=== PATIENT | male | born 1940 | race Caucasian/White ===

== ENCOUNTER 2017-06-16 13:17 | Inpatient (IN) ==
[2017-06-16] MEDS ORDERED: 0.9 % Sodium Chloride 1,000 ML IVC ONE (13:33)
--- NOTE | 2017-06-16 13:34 | Emergency Department Note ---
Disposition Clinical Impression: Elevated creatine kinase, Right inguinal hernia, Seizure-like activity Hypotension Qualifiers: Hypotension type: unspecified hypotension type Qualified Code(s): I95.9 - Hypotension, unspecified Disposition: Admitted As Inpatient Condition: Good [facility] - Forms: ED Satisfaction Letter, Work/School Release Time of Disposition: 16:35 General Adult HPI - General Chief complaint: ED General Medical Stated complaint: PAIN Time Seen by Provider: 06/16/17 13:27 Source: patient, EMS Mode of arrival: EMS Limitations: no limitations Nursing Notes Reviewed: Yes Vital Signs Reviewed: Yes - History of Present Illness HPI Narrative: patient is a 76-year-old male with past medical history of a recent Escherichia coli pyelonephritis, CKD, dementia, BPH, high cholesterol. He presents today as a transfer from the [facility]. states that the patient was recently discharged about a week ago from the [facility] due to pyelonephritis. During that time, he received IV antibiotics. He was eventually sent home with Keflex to take 4 times daily. He finished this prescription. When sent home, the patient was also sent home with a Saab catheter in place due to BPH and difficulty with urination. This has since been removed. The patient has been urinating without complication. He presented today to the [facility] due to right groin pain. He noticed some swelling and pain in the right groin this morning. While at the [facility], patient was found to have a low blood pressure, systolic blood pressure in the 80s. During his stay, patient also reportedly had a seizure. states that the patient was on the edge of the bed, was saying that he felt flushed and wanted to sit down in a chair. He ambulated over to the chair , sat down, his eyes rolled back in his head, and states that the patient had tonic-clonic movement in the upper and lower extremities. She is unsure patient was given any medication during this episode. Denies any history of seizures. The patient was transferred here with no lab work results or imaging done due to concern of possible urosepsis with low blood pressure. Patient denies any nausea, vomiting, fevers or diarrhea, constipation. No dysuria, hematuria, dark urine. His only current complaint is right-sided groin pain. says that she is concerned because the patient has not eaten or drink anything in the past two days. - Related Data Allergies Allergy/AdvReac Type Severity Reaction Status Date / Time No Known Allergies Allergy Verified 06/16/17 13:18 All systems ED: reviewed and negative except as stated. Constitutional: Denies: fever Cardiovascular: Denies: chest pain Respiratory: Denies: cough, dyspnea Gastrointestinal: Reports: other (groin pain). Denies: nausea, vomiting, diarrhea, constipation Genitourinary: Denies: urgency, dysuria, frequency, hematuria Neurological: Denies: weakness, numbness, paresthesias Past Medical History - Past Medical History Attestation: Yes The following information was validated with the patient. Source: patient Physical Exam - General Limitations: no limitations General appearance: alert, in no apparent distress - Head Head exam: atraumatic, normocephalic, normal inspection - Eye Eye exam: Present: normal appearance, PERRL, EOMI - ENT ENT exam: normal exam, normal oropharynx, mucous membranes moist - Neck Neck exam: Present: normal inspection, full ROM, trachea midline - Chest Chest inspection: Present: normal inspection, symmetric chest wall rise - Respiratory Respiratory exam: Present: normal lung sounds bilaterally - Cardiovascular Cardiovascular exam: Present: regular rate, normal rhythm, normal heart sounds - Abdominal Exam Abdominal exam: Present: soft, Non-Tender. Absent: tenderness, distention, guarding, rebound, rigidity - Male exam: Present: normal inspection, inguinal hernia (on right). Absent: erythema, testicular tenderness, urethral discharge, scrotal swelling - Extremities Exam Extremities exam: Present: normal inspection, full ROM. Absent: tenderness, pedal edema - Neurological Exam Neurological exam: Present: alert, oriented X3 - Psychiatric Psychiatric exam: Present: normal affect, normal mood - Skin Skin exam: Present: warm, dry, intact, normal color Course Course Narrative: Systolic blood pressure on arrival on repeat pressure was 100 after 500 mL of fluids. The rest of the vitals within normal limits. Physical exam showed no abdominal tenderness. However, the patient did have tenderness in the right inguinal region with probable hernia palpated. No testicular swelling, erythema , pain, no penile lesions, discharge. EKG shows sinus bradycardia with no acute ST changes. Patient was given 1gram of rocephin during transfer. Will give additional 1L NS in addition to the [facility] Will scan the patient's head due to new onset seizure, will also get a CT of the abdomen and pelvis to assess for any strangulation of the right inguinal hernia. Will also obtain basic labs, blood cultures, lactic acid, and urinalysis due to the recent urosepsis and reported low blood pressure at [facility]. 16:30 overall, the EKG showed normal sinus rhythm with no acute ST changes. He does have evidence of a right bundle branch block. There is mild anemia, mild leukocytosis on lab work. BMP shows creatinine of 2.18. Patient does have a history of kidney disease that is chronic. However, do not have any labs to compare his baseline. Patient has been given fluids during his stay which should help because if this is ALIVIA. Troponin negative. Head CT was negative for any acute intracranial abnormality. Abdomen and pelvis CT shows right fat filled inguinal hernia, no bowel present in the hernia. Diverticulosis without diverticulitis. There is also some mild thickening of the bladder and loculation of gas in the bladder that could be due to recent Saab placement. Overall, I do not have an explanation currently as to why the patient had a new onset seizure. I do not have a reason for his hypertension as well. Due to both of these issues, I feel that the patient needs to be admitted at this time for further workup. Family agrees. Patient was informed of all these results. He is declining any pain medication for the right inguinal hernia. He denies any current right groin pain at this time. Blood pressure has stabilized with systolic blood pressure in the 100 to 110s Abdomen/Pelvis CT 06/16/17 13:33 IMPRESSION: 1. Moderate-sized fat filled right inguinal hernia. 2. Diverticulosis without evidence for diverticulitis. 3. Mild circumferential bladder wall thickening as well as nonspecific locule of gas within the bladder lumen. Locule of gas potentially may be related to recent instrumentation, however, recommend clinical correlation to exclude cystitis. D/ / Rashid Hassan MD / Rashid Hassan MD Interpreting Provider: Rashid Hassan MD Head CT 06/16/17 13:33 IMPRESSION: 1. No acute intracranial abnormality. 2. Cerebral and cerebellar parenchymal volume loss with chronic microvascular white matter ischemic disease. 3. Right mastoid effusion. D/ / 06/16/2017 15:33:39 Anton Anderson MD / [facility] Interpreting Provider: Anton Anderson MD Vital Signs Temperature 97.9 F 06/16/17 13:21 Pulse Rate 51 06/16/17 13:21 Respiratory Rate 18 06/16/17 13:21 Blood Pressure 96/54 06/16/17 13:21 O2 Sat by Pulse Oximetry 95 06/16/17 13:21 Temperature 97.9 F 06/16/17 13:21 Pulse Rate 56 06/16/17 16:25 Respiratory Rate 14 06/16/17 16:25 Blood Pressure 108/68 06/16/17 16:25 O2 Sat by Pulse Oximetry 96 06/16/17 16:25 Oxygen Delivery Oxygen Delivery Nasal Cannula Medical Decision Making - MDM Narrative Medical decision making narrative: overall, the EKG showed normal sinus rhythm with no acute ST changes. He does have evidence of a right bundle branch block. There is mild anemia, mild leukocytosis on lab work. BMP shows creatinine of 2.18. Patient does have a history of kidney disease that is chronic. However, do not have any labs to compare his baseline. Patient has been given fluids during his stay which should help because if this is ALIVIA. Troponin negative. Head CT was negative for any acute intracranial abnormality. Abdomen and pelvis CT shows right fat filled inguinal hernia, no bowel present in the hernia. Diverticulosis without diverticulitis. There is also some mild thickening of the bladder and loculation of gas in the bladder that could be due to recent Saab placement. Overall, I do not have an explanation currently as to why the patient had a new onset seizure. I do not have a reason for his hypertension as well. Due to both of these issues, I feel that the patient needs to be admitted at this time for further workup. Family agrees. Patient was informed of all these results. He is declining any pain medication for the right inguinal hernia. He denies any current right groin pain at this time. Blood pressure has stabilized with systolic blood pressure in the 100 to 110s - Medical Records Medical records reviewed: Yes I reviewed the patient's medical records. - Lab Data Lab results reviewed: Yes I reviewed the patient's lab results. Result diagrams: 06/16/17 13:52 06/16/17 13:52 Lab Results 06/16/17 06/16/17 06/16/17 Range/Units 13:52 13:52 13:52 WBC 11.9 H (4.3-11.1) K/mcL RBC 3.81 L (4.19-5.50) M/mcL Hgb 11.4 L (12.9-16.9) g/dL Hct 34.9 L (37.5-50.1) % MCV 91.6 (83.0-100.0) fL MCH 29.9 (28.0-33.3) pg MCHC 32.7 (31.6-35.5) g/dL RDW 13.2 (11.5-14.5) % Plt Count 273 (140-400) K/mcL MPV 9.9 (9.4-12.4) fL Immature Gran % 0.5 (0-4) % Seg Neutrophils % 80.9 % Lymphocytes % 8.9 % Monocytes % 8.8 % Eosinophils % 0.7 % Basophils % 0.2 % Neutrophils # 9.6 H (1.6-8.9) K/mcL Lymphocytes # 1.1 (0.6-4.6) K/mcL Monocytes # 1.0 (0.0-1.3) K/mcL Eosinophils # 0.1 (0.0-0.6) K/mcL Basophils # 0.0 (0.0-0.2) K/mcL PT 12.4 H (9.4-12.1) Seconds INR 1.1 APTT 31.4 (26.0-36.0) Seconds Sodium 132 L (136-145) mEq/L Potassium 3.9 (3.5-4.5) mEq/L Chloride 101 (98-109) mEq/L Carbon Dioxide 20 (19-29) mEq/L BUN 29 H (8-26) mg/dL Creatinine 2.18 H (0.72-1.25) mg/dL Est GFR ( Amer) 36 L (> 60) Est GFR (Non-Af Amer) 30 L (> 60) BUN/Creatinine Ratio 13 (6-26) Glucose 123 H (70-99) mg/dL Calculated Osmolality 281 (280-300) Lactic Acid (0.5-2.2) mmol/L Calcium 9.2 (8.6-10.8) mg/dL Phosphorus 3.7 (2.3-4.7) mg/dL Magnesium 1.7 (1.6-2.6) mg/dL Total Bilirubin 0.6 (0.2-1.2) mg/dL Direct Bilirubin 0.2 (0.0-0.5) mg/dL Indirect Bilirubin 0.4 (0.0-1.2) mg/dL AST 12 (5-34) Units/L ALT 16 (0-55) Units/L Alkaline Phosphatase 44 (38-126) Units/L Troponin I (0-0.03) ng/mL Serum Total Protein 6.4 (6.0-8.3) g/dL Albumin 3.0 L (3.5-5.0) g/dL Globulin 3.4 (2.4-3.5) g/dL Albumin/Globulin Ratio 0.9 L (1.1-2.2) Urine Color (Yellow) Urine Clarity (Clear) Urine pH (5.0-8.0) pH Units Ur Specific Brinson (1.010-1.025) Urine Protein (Neg-Trace) mg/dL Urine Glucose (UA) (Normal) mg/dL Urine Ketones (Negative) mg/dL Urine Blood (Negative) Urine Nitrite (Negative) Urine Bilirubin (Negative) Urine Urobilinogen (Normal) mg/dL Ur Leukocyte Esterase (Negative) Urine Microscopic RBC (0-3) per hpf Urine Microscopic WBC (0-3) per hpf Ur Squamous Epith Cells (None-Few) per lpf Urine Bacteria (None-Few) per hpf Ur Culture Indicated? (NO) 06/16/17 06/16/17 06/16/17 Range/Units 13:52 13:52 15:25 WBC (4.3-11.1) K/mcL RBC (4.19-5.50) M/mcL Hgb (12.9-16.9) g/dL Hct (37.5-50.1) % MCV (83.0-100.0) fL MCH (28.0-33.3) pg MCHC (31.6-35.5) g/dL RDW (11.5-14.5) % Plt Count (140-400) K/mcL MPV (9.4-12.4) fL Immature Gran % (0-4) % Seg Neutrophils % % Lymphocytes % % Monocytes % % Eosinophils % % Basophils % % Neutrophils # (1.6-8.9) K/mcL Lymphocytes # (0.6-4.6) K/mcL Monocytes # (0.0-1.3) K/mcL Eosinophils # (0.0-0.6) K/mcL Basophils # (0.0-0.2) K/mcL PT (9.4-12.1) Seconds INR APTT (26.0-36.0) Seconds Sodium (136-145) mEq/L Potassium (3.5-4.5) mEq/L Chloride (98-109) mEq/L Carbon Dioxide (19-29) mEq/L BUN (8-26) mg/dL Creatinine (0.72-1.25) mg/dL Est GFR ( Amer) (> 60) Est GFR (Non-Af Amer) (> 60) BUN/Creatinine Ratio (6-26) Glucose (70-99) mg/dL Calculated Osmolality (280-300) Lactic Acid 1.8 (0.5-2.2) mmol/L Calcium (8.6-10.8) mg/dL Phosphorus (2.3-4.7) mg/dL Magnesium (1.6-2.6) mg/dL Total Bilirubin (0.2-1.2) mg/dL Direct Bilirubin (0.0-0.5) mg/dL Indirect Bilirubin (0.0-1.2) mg/dL AST (5-34) Units/L ALT (0-55) Units/L Alkaline Phosphatase (38-126) Units/L Troponin I 0.01 (0-0.03) ng/mL Serum Total Protein (6.0-8.3) g/dL Albumin (3.5-5.0) g/dL Globulin (2.4-3.5) g/dL Albumin/Globulin Ratio (1.1-2.2) Urine Color Yellow (Yellow) Urine Clarity Cloudy A (Clear) Urine pH 6.0 (5.0-8.0) pH Units Ur Specific Brinson 1.010 (1.010-1.025) Urine Protein Negative (Neg-Trace) mg/dL Urine Glucose (UA) Normal (Normal) mg/dL Urine Ketones Negative (Negative) mg/dL Urine Blood Small H (Negative) Urine Nitrite Negative (Negative) Urine Bilirubin Negative (Negative) Urine Urobilinogen Normal (Normal) mg/dL Ur Leukocyte Esterase Large H (Negative) Urine Microscopic RBC 0-3 (0-3) per hpf Urine Microscopic WBC 0-3 (0-3) per hpf Ur Squamous Epith Cells Few (None-Few) per lpf Urine Bacteria Few (None-Few) per hpf Ur Culture Indicated? YES A (NO) - Radiology Data Radiology results reviewed: Yes I reviewed the patient's radiology results. Abdomen/Pelvis CT 06/16/17 13:33 IMPRESSION: 1. Moderate-sized fat filled right inguinal hernia. 2. Diverticulosis without evidence for diverticulitis. 3. Mild circumferential bladder wall thickening as well as nonspecific locule of gas within the bladder lumen. Locule of gas potentially may be related to recent instrumentation, however, recommend clinical correlation to exclude cystitis. D/ / Rashid Hassan MD / Rashid Hassan MD Interpreting Provider: Rashid Hassan MD Head CT 06/16/17 13:33 IMPRESSION: 1. No acute intracranial abnormality. 2. Cerebral and cerebellar parenchymal volume loss with chronic microvascular white matter ischemic disease. 3. Right mastoid effusion. D/ / 06/16/2017 15:33:39 Anton Anderson MD / [facility] Interpreting Provider: Anton Anderson MD - EKG Data EKG #1 EKG attestation: Yes I reviewed and interpreted this EKG. EKG results narrative: 06/16/2017 at 13:44. Sinus bradycardia. Rate 51. MN interval 248. QRS 154. QTC 458. No acute ST elevation or depression. Evidence of right bundle branch block. S.B.A.R. - S.B.A.R. Situation: Demographics, MOA Background: Presenting Complaint, Relevant PMH, Meds, & Allergies Assessment: Vital Signs, Course and respsone to treatment, Exam Concerns, Patient/Family Expectation, Pertinant Lab Results Recommendation: Barrier(s) to disposition, Recommendation based on pending studies, treatments, or consults Radhika Report Given to: Francisco Garrido Repor Time: 16:36
--- NOTE | 2017-06-16 13:54 | Emergency Department Note ---
START Narrative - START START: I examined this patient and my medical decision-making was reviewed with the emergency medicine resident. I agree with the documented findings, disposition and treatment plan as described except to the extent set forth below. Patient seen with emergency medicine resident Dr. MICAELA CHRISTIAN, Please see a copy of his note for details of the H&P, ED evaluation, management and disposition. I have independently evaluated the patient and confirmed appropriate portions of the history and physical exam. Briefly: 76-year-old male transferred from the [facility] for "urosepsis". Patient was admitted to the [facility] last week for pyelonephritis and discharge home. He has been getting progressively weaker while weeding and being evaluated at the [facility] earlier today he had a 2 minute tonic-clonic seizure. No prior history of this. Patient is a suggestive feels achy all ling type. Patient initially was hypotensive his systolic in the 80s now 100 after 500 mL of normal saline bolus. Patient getting modified sepsis workup with lactate and screening labs IV fluid. Disposition pending, provided 35 minutes of critical care service for this patient.
[2017-06-16 13:59] LABS: Basophils % 0.2 %; Eosinophils # 0.1 K/mcL (0.0-0.6); Eosinophils % 0.7 %; Hematocrit 34.9 % (37.5-50.1); Hemoglobin 11.4 g/dL (12.9-16.9); Immature Granulocytes % 0.5 % (0-4); Lymphocytes # 1.1 K/mcL (0.6-4.6); Lymphocytes % 8.9 %; Mean Corpuscular HGB Conc 32.7 g/dL (31.6-35.5); Mean Corpuscular Hemoglobin 29.9 pg (28.0-33.3); Mean Corpuscular Volume 91.6 fL (83.0-100.0); Mean Platelet Volume 9.9 fL (9.4-12.4); Monocytes % 8.8 %; Neutrophils # 9.6 K/mcL (1.6-8.9); Platelet Count 273 K/mcL (140-400); Red Blood Count 3.81 M/mcL (4.19-5.50); Red Cell Distribution Width 13.2 % (11.5-14.5); Segmented Neutrophils % 80.9 %
[2017-06-16 14:10] LABS: INR 1.1; Prothrombin Time 12.4 Seconds (9.4-12.1)
[2017-06-16 14:12] LABS: Activated Partial Thrombo Time 31.4 Seconds (26.0-36.0)
[2017-06-16 14:14] LABS: Albumin/Globulin Ratio 0.9 (1.1-2.2); Bilirubin,Direct 0.2 mg/dL (0.0-0.5); Bilirubin,Indirect 0.4 mg/dL (0.0-1.2); Bilirubin,Total 0.6 mg/dL (0.2-1.2); Calcium 9.2 mg/dL (8.6-10.8); Globulin 3.4 g/dL (2.4-3.5); Magnesium 1.7 mg/dL (1.6-2.6); Phosphorous 3.7 mg/dL (2.3-4.7); Potassium 3.9 mEq/L (3.5-4.5); Total Protein 6.4 g/dL (6.0-8.3)
[2017-06-16 15:33] LABS: Bilirubin,Urine Negative (Negative); Blood,Urine Small (Negative); Clarity,Urine Cloudy (Clear); Color,Urine Yellow (Yellow); Glucose,Urine (UA) Normal (Normal); Ketones,Urine Negative (Negative); Leukocyte Esterase,Urine Large (Negative); Nitrite,Urine Negative (Negative); Protein,Urine Negative (Neg-Trace); Urobilinogen,Urine Normal (Normal)
[2017-06-16 15:45] LABS: Bacteria,Urine Few per hpf (None-Few); RBC,Urine 0-3 per hpf (0-3); Squamous Epithelial Cell,Urine Few per lpf (None-Few); WBC,Urine 0-3 per hpf (0-3)
[2017-06-16] MEDS ORDERED: Acetaminophen 325 MG TABLET PO PRN (16:46)
[2017-06-16] MEDS ORDERED: Naloxone 0.4 MG/ML INJ IVP PRN (16:46)
[2017-06-16] MEDS ORDERED: Ondansetron 4 MG/2 ML VIAL IVP PRN (16:46)
[2017-06-16] MEDS ORDERED: *HR* Morphine 2 MG/ML SYRINGE IVP PRN (16:46)
[2017-06-16] MEDS ORDERED: *HR* OxyCODONE Immed Rel 5 MG TABLET PO PRN (16:46)
--- NOTE | 2017-06-16 17:35 | Internal Med History&Physical ---
Date of Encounter: 06/16/17 Time of Encounter: 17:33 Assessment and Plan (1) Seizure-like activity Current visit: Yes Status: Acute Seizure is possibly multifactorial and metabolic: ALIVIA on CKD, Hypotension Head CT unremarkable Brain MRI-not done, patient has hardware Neurology eval EEG ordered No suspicion for meningitis-no meningeal signs Seizure precautions (2) Hyponatremia Current visit: Yes Status: Acute Possibly due to use of diuretics and seizure-like activity Presenting Na-132 Check TSH/urine osmolality/lipid panel Patient received 2L of normal saline from [place] and [facility] Repeat sodium 6 hrs time Continue normal saline at 75cc/hr there is no indication for hypertonic saline at this time Hold diuretics (3) Hypotension Current visit: Yes Status: Acute Hold antihypertensives BP is improving BP on arrival here 96/54 Check orthostatics Patient was just started on Tamsulosin 3 days prior to presentation Hold for now Qualifiers: Hypotension type: unspecified hypotension type Qualified Code(s): I95.9 - Hypotension, unspecified (4) UTI (urinary tract infection) Current visit: Yes Status: Acute Patient was recently treated for Acute pyelonephritis at the [place], completed treatment for 14 days UA shows hematuria and positive LE Abd CT shows bladder wall thickening Continue Ceftriaxone Follow urine culture Qualifiers: Urinary tract infection type: acute cystitis Hematuria presence: with hematuria Qualified Code(s): N30.01 - Acute cystitis with hematuria (5) Piznk-yz-occxoud kidney injury Current visit: Yes Status: Acute Patient with known CKD III BUN/Cr at [place] 06/13 26/1.2, BUN/Cr here today 26/2.18 Received 2L bolus in the ER ALIVIA is pre-renal from poor oral intake with use of diuretics and possibly hypotension Hold ACEI/Diuretics Avoid nephrotoxins Abd CT with no evidence of hydronephrosis/stones Encourage liberal fluid intake orally Monitor Chem Qualifiers: Acute renal failure type: unspecified Chronic kidney disease stage: stage 3 (moderate) Qualified Code(s): N17.9 - Acute kidney failure, unspecified; N18.3 - Chronic kidney disease, stage 3 (moderate) (6) HLD (hyperlipidemia) Current visit: Yes Status: Chronic Resume home meds Check fasting lipid panel a.m Qualifiers: Hyperlipidemia type: unspecified Qualified Code(s): E78.5 - Hyperlipidemia , unspecified (7) Leukocytosis Current visit: Yes Status: Acute Possibly secondary to Seizure like activity and dehydration Could also be due to UTI WBC on 06/13/17 at PCP's office was 7.9 Patient is not septic Rpt CBC a.m Qualifiers: Leukocytosis type: unspecified Qualified Code(s): D72.829 - Elevated white blood cell count, unspecified (8) Dementia Current visit: Yes Status: Chronic Resume home meds Per , patient is functional and independent prior to onset of acute illness Qualifiers: Alzheimer's disease onset: other onset Dementia behavioral disturbance: without behavioral disturbance Qualified Code(s): G30.8 - Other Alzheimer's disease; F02.80 - Dementia in other diseases classified elsewhere without behavioral disturbance (9) Goiter Current visit: Yes Status: Acute Said by to have been "obstructing his airway" Patient has no stridor at this time Check TSH O2 sat acceptable for now, 2L/minute prn Obtain CXR Internal Medicine - H&P: HPI Chief complaint: Seizure like activity Admitted From: Hospital to Hospital Transfer Plans for Post Hospital Care: Home History of present illness: Mr. Ford is a 76 year old male with PMH of CKD III, BPH, HTN, HLD, Dementia who was transferred to [place] from the [place] for new onset seizure-like activity Patient is seen and evaluated at bedside with spouse She reports patient was recently discharged from the [place] after a 9 days hospitalization for acute E.coli pyelonpehritis as well as SHIELDS from an enlarged prostate. he was discharged home with an indwelling Saab and oral antibiotics to complete 14 days of treatment which he had completed. During that admission, he also had a diagnosis of a goiter and was referred to a neck surgeon Patient saw his PCP on 06/13/17 for a follow up during which the Saab catheter was removed and patient was started on Tamsulosin She took him to the Urgent care at the [place] today due to Fatigue, Cold intolerance , Weakness and Poor oral intake. She reports all these symptoms started 3 days ago, after return from the PCP's visit She denies fever or chills, nausea or vomiting, but reports patient has had a poor oral intake and has gone "downhill" since then. On presentation to the [place], patient was hypotensive with BP 87/55 and bradycardic. He had one episode of tonic-clonic seizures with eyes rolling, states it may have lasted about 2 minutes. He was transferred here for further management. Apart from feeling cold, he denies any symptoms at time of review. he has has multiple hip/knee/shoulder replacement surgeries Work up done here revealed EKG shows sinus jacinta, 1st degress AV block and RBBB Chem at [place] 06/13: NA 140, K 4.2, BUN/Cr 26/1.2 Chem here Na 132, BUN/Cr 26/2.18 Lactate is normal LFT is normal Head CT: Chronic microvascular changes Abdomen/Pelvis CT: Bladder wall thickening, R inguinal hernia, diverticulosis, enlarged prostate CXR: Not done UA: LE + Past Med Surg Social Fam HX - Past Medical History Medical history: dementia, hyperlipidemia, other Psychiatric history: no psych history - Social History Smoking Status: Never smoker Smokeless Tobacco Status: No Alcohol use: none Drug use: none Internal Medicine - H&P: Meds Atenolol [Tenormin] 50 mg PO DAILY 06/16/17 [History] Cyanocobalamin (B-12) [Vitamin B12] 1,000 mcg PO DAILY 06/16/17 [History] Donepezil [Aricept] 10 mg PO HS 06/16/17 [History] Gemfibrozil [Lopid] 600 mg PO BIDWM 06/16/17 [History] Lisinopril/Hydrochlorothiazide [Zestoretic 20-12.5 mg Tablet] 2 tab PO DAILY [History] Pantoprazole Sodium 40 mg PO DAILY 06/16/17 [History] Potassium Chloride Elixir [Potassium Chloride] 15 ml PO DAILY 06/16/17 [History] Tamsulosin [Flomax] 0.4 mg PO DAILY 06/16/17 [History] cephALEXin [Cephalexin] 500 mg PO Q6H 06/16/17 [History] 3 Allergy/AdvReac Type Severity Reaction Status Date / Time No Known Allergies Allergy Verified 06/16/17 13:18 All Systems PM: A 10-system review of systems was performed and is negative for pertinent findings except as documented above in the HPI. - Constitutional Constitutional: as per HPI - EENT Eyes: as per HPI Ears: as per HPI Nose, mouth and throat: as per HPI - Cardiovascular Cardiovascular ROS IM: as per HPI - Respiratory Respiratory: as per HPI - Gastrointestinal Gastrointestinal: as per HPI - Musculoskeletal Musculoskeletal ROS IM: as per HPI - Integumentary Integumentary IM: as per HPI - Neurological Neurological ROS: as per HPI - Psychiatric Psychiatric: as per HPI - Endocrine Endocrine IM: as per HPI - Hematologic/Lymphatic Hematologic/Lymphatic: as per HPI - Constitutional Vitals: Temp Pulse Resp BP Pulse Ox 97.9 F 56 18 101/62 96 06/16/17 13:21 06/16/17 16:25 06/16/17 16:50 06/16/17 16:50 06/16/17 16:25 General appearance: Present: A&O X 3, pleasant, no acute distress - Head Head exam: Present: atraumatic, normocephalic - Eye Eye exam: Present: PERRL, conjuntiva pink, sclera anicteric Pupils: Present: PERRL - ENT ENT exam: Present: mucous membranes moist - Neck Neck exam general surgery: Present: thyromegaly - Respiratory Respiratory exam: Present: CTAB. Absent: rales, rhonchi, stridor, wheezes - Cardiovascular Cardiovascular exam: Present: bradycardia, +S1, +S2. Absent: diastolic murmur, gallop, JVD, rubs, systolic murmur - GI/Abdominal GI/Abdominal exam: Present: normal bowel sounds, soft, no peritoneal signs. Absent: distended, tenderness - Extremities Exam Extremities exam: Present: warm, radial pulses palpable and symmetrical. Absent : calf tenderness, cyanotic, pedal edema - Neurological Exam Neurological exam: Present: alert, CN II-XII intact, oriented X3, no focal deficits. Absent: pronater drift, facial droop, speech deficit Additional comments: No meningeal signs - Skin Skin exam: Present: dry, intact Internal Med - H&P Results - Labs CBC & Chem 7: 06/16/17 13:52 06/16/17 13:52
[2017-06-16 18:06] LABS: Thyroid Stimulating Hormone 1.274 mcIU/mL (0.350-4.840)
[2017-06-17] MEDS: *HR* Heparin 5,000 UNIT/ML VIAL SQ SCH ×3 (00:31→17:10)
[2017-06-17 04:57] LABS: Basophils % 0.2 %; Eosinophils # 0.1 K/mcL (0.0-0.6); Eosinophils % 1.1 %; Hematocrit 32.9 % (37.5-50.1); Hemoglobin 11.2 g/dL (12.9-16.9); Immature Granulocytes % 0.3 % (0-4); Immature Platelets 3.6 % (1.1-6.1); Lymphocytes # 1.3 K/mcL (0.6-4.6); Lymphocytes % 15.1 %; Mean Corpuscular Volume 91.1 fL (83.0-100.0); Mean Platelet Volume 10.2 fL (9.4-12.4); Monocytes # 0.8 K/mcL (0.0-1.3); Monocytes % 9.6 %; Neutrophils # 6.4 K/mcL (1.6-8.9); Platelet Count 281 K/mcL (140-400); Red Blood Count 3.61 M/mcL (4.19-5.50); Red Cell Distribution Width 13.2 % (11.5-14.5); Segmented Neutrophils % 73.7 %
[2017-06-17 05:15] LABS: Chol/HDL Ratio 5.4 (0-4.9)
[2017-06-17 05:18] LABS: Calcium 9.3 mg/dL (8.6-10.8); Potassium 3.6 mEq/L (3.5-4.5)
[2017-06-17] MEDS: 0.9 % Sodium Chloride 1,000 ML IVC SCH ×2 (06:40→17:10)
[2017-06-17] MEDS: Potassium Chloride Elixir 20 MEQ/15 ML UDC PO SCH (08:19)
[2017-06-17] MEDS: Cyanocobalamin (B-12) 1,000 MCG TABLET PO SCH (08:20)
--- NOTE | 2017-06-17 09:49 | Internal Med Progress Note ---
Date of Encounter: 06/17/17 Time of Encounter: 09:44 - Subjective Interval history: Mr. Ford is a 76 year old male with PMH of CKD III, BPH, HTN, HLD, Dementia who was transferred to [place] from the [place] for new onset seizure-like activity Condition disabilities sitting in chair however seen disoriented to time place and person. He can answer my questions his short-term and long-term memory seems impaired. Patient is on Aricept with a known history of dementia per H&P . No family member available #1 seizure-like activity question etiology MRI brain and EEG pending neurology to see the patient #2 UTI sepsis and culture pending on IV Rocephin recently treated for UTI for 10 days. Blood pressure is on lower side continue following CBC #3 acute on chronic kidney injury patient is on IV fluid and creatinine has already started improving continue following renal function #4 hyponatremia/neck goiter with normal TSH [facility] and has referred him to neck surgeon - Constitutional Vitals: Temp Pulse Resp BP Pulse Ox 97.9 F 58 16 102/63 95 06/17/17 07:19 06/17/17 07:19 06/17/17 07:19 06/17/17 07:19 06/17/17 08:31 General appearance: Present: A&O X 1, pleasant, no acute distress - Head Head exam: Present: atraumatic, normocephalic - Eye Eye exam: Present: PERRL, conjuntiva pink, sclera anicteric Pupils: Present: PERRL - Neck Neck exam general surgery: Present: supple, trachea midline. Absent: lymphadenopathy - Respiratory Respiratory exam: Present: CTAB. Absent: accessory muscle use, rales, rhonchi, wheezes - Cardiovascular Cardiovascular exam: Present: RRR, +S1, +S2. Absent: diastolic murmur, gallop, rubs, systolic murmur - GI/Abdominal GI/Abdominal exam: Present: normal bowel sounds, soft, no peritoneal signs. Absent: distended, tenderness - Extremities Exam Extremities exam: Present: warm, radial pulses palpable and symmetrical. Absent : calf tenderness, cyanotic, pedal edema - Neurological Exam Neurological exam: Present: alert, CN II-XII intact, no focal deficits. Absent : pronater drift, facial droop, speech deficit - Skin Skin exam: Present: dry, intact Internal Medicine: Result - Labs CBC & Chem 7: 06/17/17 04:36 06/17/17 04:36 Labs: Short CBC 06/17/17 Range/Units 04:36 WBC 8.7 (4.3-11.1) K/mcL Hgb 11.2 L (12.9-16.9) g/dL Hct 32.9 L (37.5-50.1) % Plt Count 281 (140-400) K/mcL Neutrophils # 6.4 (1.6-8.9) K/mcL BMP 06/16/17 06/17/17 19:43 04:36 Sodium 137 138 Potassium 3.6 Chloride 108 Carbon Dioxide 23 BUN 22 Creatinine 1.41 H Glucose 104 H Calcium 9.3 - ABG Interpretation ABG results: PT/INR, D-dimer PT 12.4 Seconds (9.4-12.1) H 06/16/17 13:52 - Impressions Impressions Chest X-Ray 06/16/17 18:03 IMPRESSION: No focal airspace consolidation or pulmonary vascular congestion. D/ / Zohaib Dalal / Zohaib Dalal Interpreting Provider: Zohaib Dalal - VTE Documentation of Mechanical Device: Graduated compression elastic hosiery Consult Discharge Plan - Plan [facility]errals: [facility] [Primary Care Provider] -
--- NOTE | 2017-06-17 13:34 | Neurology - Consult Note ---
Date of Encounter: 06/17/17 Time of Encounter: 13:32 Assessment and Plan (1) Seizure-like activity Current Visit: Yes Status: Acute Patient with acute ongoing medical issues especially acute on chronic kidney failure, hypotension hyponatremia who developed episode of convulsive syncope vs seizure. This could be convulsive syncope where few myoclonic jerking activity can be seen. Patient did not have tongue biting or urinary incontinence. or this could be a short lasting seizure but certainly this felt like a provoked event. Will obtain EEG in AM. Currently does not feel that he needs antiepileptic therapy. (2) Confusion and disorientation Current Visit: Yes Status: Acute This likely is secondary to acute encephalopathy secondary to ongoing medical conditions but there does appear to be component of baseline dementia. it is noted that the patient has been taking aricept therefore he likes has baseline dementia. This could certainly be complicated by his ongoing medical conditions. would recommend continuing medical and supportive care. Baseline cognitive impairment can be best evaluated after medication conditions stabilize. 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 CSF study not needed. History of Present Illness Chief complaint: seizure like activity and confused HPI: Mr. Ford is a 76 year old male with PMH significant for dementia, CKD, goiter and recently history of kidney infection requiring hospitalization one week ago who developed right groin pain. patient was found to have kidney infection a week ago and was treated at [place] with IV antibiotics. He came back to [place] again with complaint of having right groin pain. there he was found to have hypotension and also reportedly he had a seizure like activity at [facility]. Reportedly, he developed prodromal symptoms including light headedness and was able to sit down but then developed eyes rolling back and some tonic clonic arm activity. No tongue biting or urinary incontinence reported. CT of head showed no acute intracranial abnormaltiy. patient is seen today and he is in sitting position and watching TV. No significant discomforts at this time. He reports no pain, in particular no headaches, no neck pain. He has no prior history of seizure. Patient does report significant short term memory loss occurred over the last few months. He states that he used to be having very good memory and able to do things requiring high mental function but now he could not communicate to people. 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 he has been having difficulty tracking time but is able to spell and calculate. Medication list showed that he takes aricept. Does not know how long he has been taking the medicine Past Med Surg Social Fam HX - Past Medical History Medical history: dementia, hyperlipidemia, other Psychiatric history: no psych history - Social History Smoking Status: Never smoker Smokeless Tobacco Status: No Alcohol use: none Drug use: none Medications and Allergies Atenolol [Tenormin] 50 mg PO DAILY 06/16/17 [History] Cyanocobalamin (B-12) [Vitamin B12] 1,000 mcg PO DAILY 06/16/17 [History] Donepezil [Aricept] 10 mg PO HS 06/16/17 [History] Gemfibrozil [Lopid] 600 mg PO BIDWM 06/16/17 [History] Lisinopril/Hydrochlorothiazide [Zestoretic 20-12.5 mg Tablet] 2 tab PO DAILY [History] Pantoprazole Sodium 40 mg PO DAILY 06/16/17 [History] Potassium Chloride Elixir [Potassium Chloride] 15 ml PO DAILY 06/16/17 [History] Tamsulosin [Flomax] 0.4 mg PO DAILY 06/16/17 [History] cephALEXin [Cephalexin] 500 mg PO Q6H 06/16/17 [History] 3 Allergy/AdvReac Type Severity Reaction Status Date / Time No Known Allergies Allergy Verified 06/16/17 13:18 All Systems: A 10-system review of systems was performed and is negative for pertinent findings except as documented above in the HPI. Physical Examination - Vital Signs Vital Signs: Initial Vital Signs Temp Pulse Resp BP Pulse Ox 97.9 F 51 18 96/54 95 06/16/17 13:21 06/16/17 13:21 06/16/17 13:21 06/16/17 13:21 06/16/17 13:21 - Constitutional General appearance: comfortable, younger than stated age - Neurologic Sensorimotor examination: other (Grossly intact) Detailed motor examination: grossly full strength in all extremities Detailed sensory examination: other (Grossly intact) Reflex and gait examination: other (No nuchal rigidity.) Reflexes: Biceps: 0, Triceps: 0, Brachioradialis: 0, Patella: 0, Achilles: 0 Mental Status Examination: awake, alert, oriented to person, oriented to place ( Know where he is and know he is in [facility] but unable to come up with '[place]'), oriented to time (Disoriented to time), follows commands appropriately, answers questions appropriately, impaired memory (has difficulty with short term memory. Scattered memory and somewhat confabulating), cognitive impairment Cranial nerve examination: PERRL, EOMI (full eye movements, no nystagmus noted) , visual ling intact, corneal reflexes brisk symmetrically (yes), sensory to face intact (intact), no facial asymmetry is present (yes), no dysarthria (Yes) , hearing is intact symmetrically (Yes), soft palate elevates bilaterally upon phonation, gag reflex intact, flexes SCM and trapezius muscles symmetrically with full power, tongue protrudes midline Results - Laboratory Findings CBC and BMP: 06/17/17 04:36 06/17/17 04:36 Abnormal lab findings: Abnormal lab results RBC 3.61 M/mcL (4.19-5.50) L 06/17/17 04:36 Hgb 11.2 g/dL (12.9-16.9) L 06/17/17 04:36 Hct 32.9 % (37.5-50.1) L 06/17/17 04:36 PT 12.4 Seconds (9.4-12.1) H 06/16/17 13:52 Creatinine 1.41 mg/dL (0.72-1.25) H 06/17/17 04:36 Est GFR ( Amer) 59 (> 60) L 06/17/17 04:36 Est GFR (Non-Af Amer) 49 (> 60) L 06/17/17 04:36 Glucose 104 mg/dL (70-99) H 06/17/17 04:36 POC Glucose 117 (58-89) H 06/16/17 21:14 Albumin 3.0 g/dL (3.5-5.0) L 06/16/17 13:52 Albumin/Globulin Ratio 0.9 (1.1-2.2) L 06/16/17 13:52 Triglycerides 167 mg/dL (< 150) H 06/17/17 04:36 LDL Cholesterol, Calc 107 mg/dL (0-99) H 06/17/17 04:36 VLDL Cholesterol, Calc 33 mg/dL (< 31) H 06/17/17 04:36 HDL Cholesterol 32 mg/dL (40-59) L 06/17/17 04:36 Cholesterol/HDL Ratio 5.4 (0-4.9) H 06/17/17 04:36 Urine Clarity Cloudy (Clear) A 06/16/17 15:25 Urine Blood Small (Negative) H 06/16/17 15:25 Ur Leukocyte Esterase Large (Negative) H 06/16/17 15:25 Ur Culture Indicated? YES (NO) A 06/16/17 15:25 Consult Discharge Plan - Plan [facility]errals: [facility] [Primary Care Provider] -
--- NOTE | 2017-06-17 18:46 | Electrocardiograph Report ---
[address] [place], [place] [address] Test Date: 2017-06-16 Pat Name: Reuben Ford Department: 103 Room: 2A22 Gender: M Nail Feeder: AM : 1940 Requested By: Chalo Wolf Order Number: [id number] Reading MD: Juventino Mabry MD Measurements Intervals [place] Rate: 51 P: 67 AK: 248 QRS: 14 QRSD: 154 T: 17 QT: 482 QTc: 458 Interpretive Statements SINUS BRADYCARDIA WITH FIRST DEGREE AV BLOCK RIGHT BUNDLE BRANCH BLOCK BASELINE ARTIFACT Electronically Signed On 06-17-2017 18:44:39 EDT by Juventino Mabry MD
[2017-06-18] MEDS: *HR* Heparin 5,000 UNIT/ML VIAL SQ SCH ×3 (00:17→15:40)
[2017-06-18 04:33] LABS: Basophils % 0.3 %; Eosinophils # 0.3 K/mcL (0.0-0.6); Eosinophils % 3.6 %; Hematocrit 34.5 % (37.5-50.1); Hemoglobin 11.3 g/dL (12.9-16.9); Immature Granulocytes % 0.3 % (0-4); Lymphocytes # 2.1 K/mcL (0.6-4.6); Lymphocytes % 28.4 %; Mean Corpuscular HGB Conc 32.8 g/dL (31.6-35.5); Mean Corpuscular Hemoglobin 29.8 pg (28.0-33.3); Mean Platelet Volume 10.4 fL (9.4-12.4); Monocytes # 0.6 K/mcL (0.0-1.3); Monocytes % 7.8 %; Neutrophils # 4.4 K/mcL (1.6-8.9); Platelet Count 287 K/mcL (140-400); Red Blood Count 3.79 M/mcL (4.19-5.50); Red Cell Distribution Width 13.2 % (11.5-14.5); Segmented Neutrophils % 59.6 %
[2017-06-18 04:50] LABS: Alanine Aminotransferase 16 Units/L (0-55); Albumin 2.9 g/dL (3.5-5.0); Albumin/Globulin Ratio 0.8 (1.1-2.2); Alkaline Phosphatase 41 Units/L (38-126); Aspartate Amino Transferase 11 Units/L (5-34); BUN/Creatinine Ratio 18 (6-26); Bilirubin,Total 0.4 mg/dL (0.2-1.2); Blood Urea Nitrogen 21 mg/dL (8-26); Calcium 9.4 mg/dL (8.6-10.8); Carbon Dioxide 21 mEq/L (19-29); Chloride 109 mEq/L (98-109); Globulin 3.6 g/dL (2.4-3.5); Glucose 94 mg/dL (70-99); Osmolality,Calculated 291 (280-300); Potassium 3.9 mEq/L (3.5-4.5); Sodium 139 mEq/L (136-145); Total Protein 6.5 g/dL (6.0-8.3); eGFR For African Americans > 60 (> 60); eGFR For Non-African Americans > 60 (> 60)
[2017-06-18] MEDS: 0.9 % Sodium Chloride 1,000 ML IVC SCH (06:14)
--- NOTE | 2017-06-18 08:54 | Internal Med Progress Note ---
Date of Encounter: 06/18/17 Time of Encounter: 08:52 - Subjective Interval history: Mr. Ford is a 76 year old male with PMH of CKD III, BPH, HTN, HLD, Dementia who was transferred to [place] from the [place] for new onset seizure-like activity History of [place] and was seen with his today. He seems much better and in presence of seems more coherent. She explained that while they were waiting in [facility] he had an episode during which his eyes rolled up and head tilted back but within a few moments he returned and was able to talk to her and recognize her right away. She was not feeling well for last few days anyways. He did not bite his tongue neither did he had shakes or bowel or bladder incontinence. What it sounds to me as like vasovagal or syncopal episode. #1 seizure-like activity question etiology MRI brain and EEG pending neurology to see the patient. His seizure has some atypical features. Rest and vasovagal or syncopal episode due to sepsis. #2 UTI sepsis : Urine culture showed Pseudomonas sensitive to Levaquin. DC Rocephin and start IV Levaquin. following CBC #3 acute on chronic kidney injury patient is on IV fluid and creatinine has already started improving continue following renal function #4 hyponatremia/neck goiter with normal TSH [facility] and has referred him to neck surgeon - Constitutional Vitals: Temp Pulse Resp BP Pulse Ox 98.5 F 57 18 127/75 94 06/18/17 07:08 06/18/17 07:08 06/18/17 07:08 06/18/17 07:08 06/18/17 07:08 General appearance: Present: A&O X 2, pleasant, no acute distress, answers questions appropriately - Head Head exam: Present: atraumatic, normocephalic - Eye Eye exam: Present: PERRL, conjuntiva pink, sclera anicteric Pupils: Present: PERRL - Neck Neck exam general surgery: Present: supple, trachea midline. Absent: lymphadenopathy - Respiratory Respiratory exam: Present: CTAB. Absent: accessory muscle use, rales, rhonchi, wheezes - Cardiovascular Cardiovascular exam: Present: RRR, +S1, +S2. Absent: diastolic murmur, gallop, rubs, systolic murmur - GI/Abdominal GI/Abdominal exam: Present: normal bowel sounds, soft, no peritoneal signs. Absent: distended, tenderness - Extremities Exam Extremities exam: Present: warm, radial pulses palpable and symmetrical. Absent : calf tenderness, cyanotic, pedal edema - Neurological Exam Neurological exam: Present: CN II-XII intact, oriented X3, no focal deficits. Absent: pronater drift, facial droop, speech deficit - Skin Skin exam: Present: dry, intact Internal Medicine: Result - Labs CBC & Chem 7: 06/18/17 04:01 06/18/17 04:01 Labs: Short CBC 06/18/17 Range/Units 04:01 WBC 7.3 (4.3-11.1) K/mcL Hgb 11.3 L (12.9-16.9) g/dL Hct 34.5 L (37.5-50.1) % Plt Count 287 (140-400) K/mcL Neutrophils # 4.4 (1.6-8.9) K/mcL BMP 06/18/17 04:01 Sodium 139 Potassium 3.9 Chloride 109 Carbon Dioxide 21 BUN 21 Creatinine 1.18 Glucose 94 Calcium 9.4 Liver Function 06/18/17 Range/Units 04:01 Total Bilirubin 0.4 (0.2-1.2) mg/dL AST 11 (5-34) Units/L ALT 16 (0-55) Units/L Alkaline Phosphatase 41 (38-126) Units/L Albumin 2.9 L (3.5-5.0) g/dL - ABG Interpretation ABG results: PT/INR, D-dimer PT 12.4 Seconds (9.4-12.1) H 06/16/17 13:52 - VTE Documentation of Mechanical Device: Graduated compression elastic hosiery Consult Discharge Plan - Plan [facility]errals: [facility] [Primary Care Provider] -
[2017-06-18] MEDS ORDERED: Levofloxacin 500 MG/100 ML 500 MG/100 ML BAG IVPB SCH (09:00)
[2017-06-18] MEDS: Potassium Chloride Elixir 20 MEQ/15 ML UDC PO SCH (10:04)
[2017-06-18] MEDS: Cyanocobalamin (B-12) 1,000 MCG TABLET PO SCH (10:05)
--- NOTE | 2017-06-18 12:13 | EEG/EMG/Oth Biometrics Report ---
EEG Procedure Report Date of procedure: 06/18/17 EEG Procedure: Routine EEG Procedure Note: This EEG was acquired with standard international 10-20 electrode placement system. The background EEG activity during this tracing was characterized by the presence of posterior dominant alpha rhythm with best frequency up to 11 Hz. The background activity was reactive to eye openings. Sleep stages were characterized by the presence of drop off of posterior dominant alpha rhythm, vertex waves, K complexes and sleep spindles. There are no electrographic seizures identified during the tracing. There are no epileptiform discharges and focal slowing noted during the recording photic stimulation produced no abnormalities. Hyperventilation procedure was not performed during the study. EKG tracing showed occasional PVCs. Impression: This is a normal awake and asleep EEG. Clinical correlation: Normal EEGs, however, do not exclude epilepsy. Clinical correlation is advised.
[2017-06-19] MEDS: *HR* Heparin 5,000 UNIT/ML VIAL SQ SCH ×2 (00:17→08:10)
[2017-06-19 05:22] LABS: Basophils % 0.5 %; Eosinophils # 0.3 K/mcL (0.0-0.6); Eosinophils % 4.9 %; Hematocrit 32.8 % (37.5-50.1); Hemoglobin 10.8 g/dL (12.9-16.9); Immature Granulocytes % 0.5 % (0-4); Lymphocytes # 1.7 K/mcL (0.6-4.6); Mean Corpuscular HGB Conc 32.9 g/dL (31.6-35.5); Mean Corpuscular Hemoglobin 29.8 pg (28.0-33.3); Mean Corpuscular Volume 90.6 fL (83.0-100.0); Mean Platelet Volume 10.4 fL (9.4-12.4); Monocytes # 0.6 K/mcL (0.0-1.3); Monocytes % 9.8 %; Neutrophils # 3.3 K/mcL (1.6-8.9); Platelet Count 291 K/mcL (140-400); Red Blood Count 3.62 M/mcL (4.19-5.50); Segmented Neutrophils % 56.3 %
[2017-06-19 05:59] LABS: Alanine Aminotransferase 14 Units/L (0-55); Albumin 2.8 g/dL (3.5-5.0); Albumin/Globulin Ratio 0.8 (1.1-2.2); Alkaline Phosphatase 42 Units/L (38-126); Aspartate Amino Transferase 12 Units/L (5-34); BUN/Creatinine Ratio 13 (6-26); Bilirubin,Total 0.4 mg/dL (0.2-1.2); Blood Urea Nitrogen 13 mg/dL (8-26); Calcium 9.5 mg/dL (8.6-10.8); Carbon Dioxide 20 mEq/L (19-29); Chloride 110 mEq/L (98-109); Globulin 3.5 g/dL (2.4-3.5); Glucose 95 mg/dL (70-99); Osmolality,Calculated 290 (280-300); Sodium 140 mEq/L (136-145); Total Protein 6.3 g/dL (6.0-8.3); eGFR For African Americans > 60 (> 60); eGFR For Non-African Americans > 60 (> 60)
[2017-06-19] MEDS: Cyanocobalamin (B-12) 1,000 MCG TABLET PO SCH (08:09)
[2017-06-19] MEDS: Potassium Chloride Elixir 20 MEQ/15 ML UDC PO SCH (08:09)
[2017-06-19] MEDS ORDERED: Levofloxacin 500 MG/100 ML 500 MG/100 ML BAG IVPB SCH (09:00)
[2017-06-19 11:45] VITALS: BP 142/85
--- NOTE | 2017-06-19 14:34 | Discharge Summary ---
Date of Encounter: 06/19/17 Time of Encounter: 14:30 - Discharge Diagnosis (1) Seizure-like activity Priority: Primary Status: Acute (2) UTI (urinary tract infection) Priority: Primary Status: Acute Qualifiers: Urinary tract infection type: acute cystitis Hematuria presence: with hematuria Qualified Code(s): N30.01 - Acute cystitis with hematuria (3) [id number] kidney injury Priority: Secondary Status: Resolved Qualifiers: Acute renal failure type: unspecified Chronic kidney disease stage: stage 3 (moderate) Qualified Code(s): N17.9 - Acute kidney failure, unspecified; N18.3 - Chronic kidney disease, stage 3 (moderate) (4) HLD (hyperlipidemia) Priority: Secondary Status: Chronic Qualifiers: Hyperlipidemia type: unspecified Qualified Code(s): E78.5 - Hyperlipidemia , unspecified (5) Hyponatremia Priority: Secondary Status: Resolved - Discharge Medications Prescriptions: levoFLOXacin [Levaquin] 500 mg PO DAILY #8 tablet Home Medications: Atenolol [Tenormin] 50 mg PO DAILY 06/16/17 [History] Cyanocobalamin (B-12) [Vitamin B12] 1,000 mcg PO DAILY 06/16/17 [History] Donepezil [Aricept] 10 mg PO HS 06/16/17 [History] Gemfibrozil [Lopid] 600 mg PO BIDWM 06/16/17 [History] Lisinopril/Hydrochlorothiazide [Zestoretic 20-12.5 mg Tablet] 2 tab PO DAILY [History] Pantoprazole Sodium 40 mg PO DAILY 06/16/17 [History] Tamsulosin [Flomax] 0.4 mg PO DAILY 06/16/17 [History] levoFLOXacin [Levaquin] 500 mg PO DAILY #8 tablet 06/19/17 [Rx] Allergies/Adverse Reactions: 3 Allergy/AdvReac Type Severity Reaction Status Date / Time No Known Allergies Allergy Verified 06/16/17 13:18 Procedures/tests Complete & Pending: Procedures Performed prior 72 hours Category Date Time Status EKG [ECG 12 lead ECG] [ECG] Stat Y 06/18/17 10:26 Stop Req Date of admission: 06/16/17 16:32 [facility] care physician: [facility] Consults: 06/16/17 18:06 Consult to Neurology [CONS] Routine Consulting Provider: Neurology [facility] Reason for Consult: New onset seizure Call Completed: No 06/16/17 18:08 Consult to Nutrition [CONS] Routine Comment: Consulting Provider: NUTRITION Reason for Dietary Consult: MST Score 06/18/17 10:57 Consult to Interpret Exam [CONS] Routine Consulting Provider: Abbe Cerda Consult to Interpret Exam: Interpret EEG Discharging clinician: Mellissa Foley Anticipated date of discharge: 06/19/17 - Patient Status Disposition: Home, Self-Care Condition: Good Functional capacity at discharge: independent ambulation Overall status at discharge: patient is back to baseline - Discharge Instructions Follow Up With: [facility] [Primary Care Provider] - Additional Instructions: Please follow up with your primary care physician within one week after your discharge from the hospital. Please follow up with urology within one to two weeks after your discharge from the hospital. Please continue garber support. Please continue oral antibiotics as prescribed. Please closely monitor your blood pressure at home. Hold your blood pressure medications if your systolic blood pressure is less than 100 and please inform your primary care physician of these blood pressure readings. Resume all other medications as prescribed by your primary care physician. - Diet and Activity Activity: resume usual activities as tolerated Diet: low salt diet Hospital course: Mr. Ford is a 76 year old male with PMH of CKD III, BPH, HTN, HLD, Dementia who was transferred to [facility] from the [place] for new onset seizure-like activity. Patient was also found to have a UTI for which he was started on empiric IV abx. He was seen by neurology and had an EEG which was negative for any seizure activity. Pt's clinical status improved after initiation of IV abx. He was also found to have ALIVIA and hypotension due to which his home dose of lisinopril/HCTZ was placed on hold. His renal function returned to baseline and his hypotension resolved. Pt is also noted to have urinary retention secondary to BPH and follows a urologist at the [facility]. He states his garber cath was removed recently prior to this hospitalization and he had been having difficulty urinating, due to which he will be discharged to home with garber cath. At this time, patient is hemodynamically stable and no further neuro work up is required as per neurologist. pt is to be discharged to home with follow up with PCP and urology. Pt and demonstrate understanding of his diagnosis and agree with the discharge care and plan. Pt will be discharged with oral abx. - Time Spent with Patient Total time spent providing and/or coordinating discharge services: Less than 30 minutes - Constitutional Vitals: Temp Pulse Resp BP Pulse Ox 97.4 F L 66 12 142/85 99 06/19/17 11:44 06/19/17 11:44 06/19/17 11:44 06/19/17 11:44 06/19/17 11:44 General appearance: Present: A&O X 3, pleasant, no acute distress, answers questions appropriately - Head Head exam: Present: atraumatic, normocephalic - Eye Eye exam: Present: conjuntiva pink, sclera anicteric - Respiratory Respiratory exam: Present: CTAB. Absent: accessory muscle use, rales, rhonchi, wheezes - Cardiovascular Cardiovascular exam: Present: RRR, +S1, +S2. Absent: diastolic murmur, gallop, rubs, systolic murmur - GI/Abdominal GI/Abdominal exam: Present: normal bowel sounds, soft, no peritoneal signs. Absent: distended, tenderness - Extremities Exam Extremities exam: Present: warm, radial pulses palpable and symmetrical. Absent : calf tenderness, pedal edema - Neurological Exam Neurological exam: Present: alert, oriented X3 - Psychiatric Psychiatric exam: Present: normal affect, normal mood - VTE Documentation of Mechanical Device: Graduated compression elastic hosiery
[2017-06-20] MEDS ORDERED: levoFLOXacin 500 MG TABLET PO SCH (09:00)
== END 2017-06-19 16:22 | disposition home or self-care (01) | DRG 871 ==
LOC: EMEROO 13:17 → SUATTDRO 16:32 → 2ANU 16:32
PROVIDERS: ADMIT Internal Medicine; ATTEND Internal Medicine

== ENCOUNTER 2022-01-03 11:03 | Inpatient (IN) ==
[2022-01-03 12:30] LABS: Basophils % 0.4 %; Eosinophils # 0.2 K/mcL (0.0-0.6); Eosinophils % 2.4 %; Hematocrit 42.7 % (37.5-50.1); Hemoglobin 13.9 g/dL (12.9-16.9); Immature Granulocytes % 0.3 % (0-4); Lymphocytes # 1.1 K/mcL (0.6-4.6); Lymphocytes % 11.1 %; Mean Corpuscular HGB Conc 32.6 g/dL (31.6-35.5); Mean Corpuscular Hemoglobin 27.2 pg (28.0-33.3); Mean Corpuscular Volume 83.6 fL (83.0-100.0); Mean Platelet Volume 10.8 fL (9.4-12.4); Monocytes # 0.8 K/mcL (0.0-1.3); Monocytes % 8.7 %; Neutrophils # 7.4 K/mcL (1.6-8.9); Platelet Count 298 K/mcL (140-400); Red Blood Count 5.11 M/mcL (4.19-5.50); Red Cell Distribution Width 14.8 % (11.5-14.5); Segmented Neutrophils % 77.1 %; White Blood Count 9.6 K/mcL (4.3-11.1)
[2022-01-03 12:35] LABS: INR 1.1; Prothrombin Time 12.2 Seconds (9.4-12.1)
[2022-01-03 12:38] LABS: Activated Partial Thrombo Time 40.9 Seconds (26.0-36.0)
[2022-01-03 12:48] LABS: Alanine Aminotransferase 36 Units/L (7-52); Albumin 4.4 g/dL (3.5-5.7); Albumin/Globulin Ratio 1.6 (1.1-2.2); Alkaline Phosphatase 78 Units/L (34-104); Aspartate Amino Transferase 37 Units/L (13-39); BUN/Creatinine Ratio 13 (6-26); Bilirubin,Direct 0.1 mg/dL (0.0-0.2); Bilirubin,Indirect 0.4 mg/dL (0.0-1.0); Bilirubin,Total 0.5 mg/dL (0.3-1.0); Blood Urea Nitrogen 14 mg/dL (8-23); Carbon Dioxide 22 mEq/L (23-29); Chloride 100 mEq/L (98-107); Globulin 2.8 g/dL (2.4-3.5); Glucose 207 mg/dL (70-105); Lipase 32 Units/L (11-82); Osmolality,Calculated 287 (280-300); Potassium 3.8 mEq/L (3.5-5.1); Sodium 135 mEq/L (136-145); Total Protein 7.2 g/dL (6.4-8.9); Troponin I < 0.03 ng/mL (< 0.04); eGFR For African Americans > 60 (> 60); eGFR For Non-African Americans > 60 (> 60)
[2022-01-03] MEDS ORDERED: Aspirin 325 MG TABLET PO ONE (13:12)
[2022-01-03] MEDS ORDERED: Ondansetron 4 MG/2 ML VIAL IVP PRN (13:30)
[2022-01-03] MEDS ORDERED: Nitroglycerin 0.4 MG TAB.SUBL SL PRN (13:30)
[2022-01-03] MEDS ORDERED: Morphine Sulfate 2 MG/ML SYRINGE IVP PRN (13:30)
[2022-01-03 13:46] LABS: Bilirubin,Urine Negative (Negative); Blood,Urine Negative (Negative); Clarity,Urine Clear (Clear); Color,Urine Colorless (Yellow); Glucose,Urine (UA) Normal (Normal); Ketones,Urine Negative (Negative); Leukocyte Esterase,Urine Negative (Negative); Nitrite,Urine Negative (Negative); Protein,Urine Negative (Neg-Trace); Urobilinogen,Urine Normal (Normal)
[2022-01-03] MEDS: Furosemide 20 MG/2 ML VIAL IVP ONE (14:44)
[2022-01-03] MEDS ORDERED: Perflutren Lipid Microsphere 1.3 ML in 0.9 % Sodium Chloride 8.7 ML IVP PRN (16:36)
[2022-01-03] MEDS: Furosemide 40 MG TABLET PO SCH (20:25)
[2022-01-04 01:29] LABS: Basophils % 0.3 %; Eosinophils # 0.2 K/mcL (0.0-0.6); Eosinophils % 2.2 %; Hematocrit 39.1 % (37.5-50.1); Hemoglobin 13.3 g/dL (12.9-16.9); Immature Granulocytes % 0.4 % (0-4); Lymphocytes # 1.7 K/mcL (0.6-4.6); Lymphocytes % 18.2 %; Mean Corpuscular Volume 82.3 fL (83.0-100.0); Mean Platelet Volume 10.8 fL (9.4-12.4); Monocytes # 1.2 K/mcL (0.0-1.3); Monocytes % 12.5 %; Neutrophils # 6.1 K/mcL (1.6-8.9); Platelet Count 316 K/mcL (140-400); Red Blood Count 4.75 M/mcL (4.19-5.50); Red Cell Distribution Width 14.8 % (11.5-14.5); Segmented Neutrophils % 66.4 %; White Blood Count 9.2 K/mcL (4.3-11.1)
[2022-01-04 01:41] LABS: Alanine Aminotransferase 30 Units/L (7-52); Albumin/Globulin Ratio 1.4 (1.1-2.2); Alkaline Phosphatase 69 Units/L (34-104); Aspartate Amino Transferase 27 Units/L (13-39); BUN/Creatinine Ratio 12 (6-26); Bilirubin,Total 0.5 mg/dL (0.3-1.0); Blood Urea Nitrogen 13 mg/dL (8-23); Calcium 9.7 mg/dL (8.6-10.3); Carbon Dioxide 23 mEq/L (23-29); Chloride 99 mEq/L (98-107); Globulin 2.8 g/dL (2.4-3.5); Glucose 146 mg/dL (70-105); Magnesium 1.9 mg/dL (1.6-2.6); Osmolality,Calculated 281 (280-300); Potassium 3.5 mEq/L (3.5-5.1); Sodium 134 mEq/L (136-145); Total Protein 6.8 g/dL (6.4-8.9); eGFR For African Americans > 60 (> 60); eGFR For Non-African Americans > 60 (> 60)
[2022-01-04 01:44] LABS: Troponin I 0.03 ng/mL (< 0.04)
[2022-01-04] MEDS ORDERED: Regadenoson 0.4 MG/5 ML SYRINGE IVP ONE (06:33)
[2022-01-04] MEDS: Finasteride 5 MG TABLET PO SCH (08:28)
[2022-01-04] MEDS: Cyanocobalamin (B-12) 1,000 MCG TABLET PO SCH (08:28)
[2022-01-04] MEDS: Furosemide 40 MG TABLET PO SCH ×2 (08:29→16:56)
[2022-01-04 09:47] LABS: Estimated Average Glucose 171 mg/dl; Hemoglobin A1C 7.6 %
[2022-01-04] MEDS ORDERED: D5% in Water 1,000 ML IVC PRN (10:02)
[2022-01-04] MEDS ORDERED: *HR* Dextrose 50 % in Water (Syg) 50 ML SYRINGE IVP PRN (10:02)
[2022-01-04] MEDS ORDERED: Dextrose 4 GM Chewable Tablets PO PRN ×2 (10:02)
[2022-01-04] MEDS: Insulin LISPRO 300 UNITS/3 ML VIAL SUBQ SCH ×4 (12:39→21:23)
[2022-01-04] MEDS: Aspirin 81 MG TAB.CHEW PO SCH (12:39)
[2022-01-04 14:34] LABS: Chol/HDL Ratio 5.6 (0-4.9)
[2022-01-04] MEDS: *HR* Heparin 5,000 UNIT/ML VIAL SQ SCH (16:56)
[2022-01-04] MEDS ORDERED: QUEtiapine Fumarate 25 MG TABLET PO PRN (20:00)
[2022-01-05] MEDS: *HR* Heparin 5,000 UNIT/ML VIAL SQ SCH ×2 (06:25→17:27)
[2022-01-05] MEDS: Insulin LISPRO 300 UNITS/3 ML VIAL SUBQ SCH ×4 (08:15→20:43)
[2022-01-05] MEDS: Aspirin 81 MG TAB.CHEW PO SCH (08:59)
[2022-01-05] MEDS: Cyanocobalamin (B-12) 1,000 MCG TABLET PO SCH (08:59)
[2022-01-05] MEDS: Furosemide 40 MG TABLET PO SCH ×2 (09:00→17:34)
[2022-01-05] MEDS: Finasteride 5 MG TABLET PO SCH (09:00)
[2022-01-05] MEDS ORDERED: Furosemide 20 MG/2 ML VIAL IVP ONE (11:18)
[2022-01-05] MEDS: Furosemide 20 MG/2 ML VIAL IVP ONE (13:22)
[2022-01-06 04:40] LABS: BUN/Creatinine Ratio 16 (6-26); Blood Urea Nitrogen 19 mg/dL (8-23); Calcium 9.9 mg/dL (8.6-10.3); Carbon Dioxide 26 mEq/L (23-29); Chloride 97 mEq/L (98-107); Glucose 117 mg/dL (70-105); Magnesium 1.9 mg/dL (1.6-2.6); Osmolality,Calculated 283 (280-300); Potassium 3.4 mEq/L (3.5-5.1); Sodium 135 mEq/L (136-145); eGFR For African Americans > 60 (> 60); eGFR For Non-African Americans 60 (> 60)
[2022-01-06] MEDS: *HR* Heparin 5,000 UNIT/ML VIAL SQ SCH (05:50)
[2022-01-06] MEDS: Furosemide 40 MG TABLET PO SCH (08:03)
[2022-01-06] MEDS: Cyanocobalamin (B-12) 1,000 MCG TABLET PO SCH (08:03)
[2022-01-06] MEDS: Finasteride 5 MG TABLET PO SCH (08:03)
[2022-01-06] MEDS: Aspirin 81 MG TAB.CHEW PO SCH (08:03)
[2022-01-06] MEDS: Insulin LISPRO 300 UNITS/3 ML VIAL SUBQ SCH ×2 (08:05→13:29)
[2022-01-06 11:05] VITALS: BP 127/75; PULSE 77; TEMP 97.9; O2SAT 93
== END 2022-01-06 15:15 | disposition home or self-care (01) | DRG 291 ==
LOC: SUATTDRO → 3BNU 11:03 → EMEROOARM 11:03 → SUATTDRO 14:13 → 3BNU 16:24
PROVIDERS: ADMIT Family Medicine; ATTEND Internal Medicine